=== PATIENT | female | born 1930 | race Caucasian/White ===

== ENCOUNTER 2017-06-20 08:29 | Emergency (ER) | payer OTHER ==
[~2017-06-20] VITALS: Ht 149.9 cm; Wt 70.8 kg
[~2017-06-20 08:29] MED LIST: CARVEDILOL3.125 M1 PO; LEVOTHYROXIN0.025 M2 PO; LISINOPRIL10 MG PO; LOVASTATIN10 MG PO; METFORMIN850 M1 PO; MICROZIDE12.5 MG PO; NOR10 PO; TRE400 PO
[2017-06-20 08:52] VITALS: Ht 149.9 cm; Wt 70.8 kg
[2017-06-20] MEDS ORDERED: ASPIR 8181 MG PO (10:15)
[2017-06-20] MEDS ORDERED: LISINOPRIL10 MG PO (10:15)
[2017-06-20] MEDS ORDERED: LEVOTHYROXIN0.025 M2 PO (10:16)
[2017-06-20] MEDS ORDERED: AMLODIPINE BESYL5 M2 PO (10:16)
[2017-06-20] MEDS ORDERED: HYDROCHLOROTH12.5 M3 PO (10:16)
[2017-06-20] MEDS ORDERED: ARICEPT5 MG PO (10:17)
[2017-06-20 12:08] LABS: BASOPHIL % 1.4 % (0-2); PLATELET COUNT 316 x10^3mcL (130-400)
[2017-06-20 12:09] LABS: UA SPECIFIC GRAVITY <=1.005 (1.005-1.035); microscopic required? YES; urine erythrocyte TRACE (NEGATIVE)
[2017-06-20 12:35] LABS: CALCIUM 9.1 mg/dL (8.5-10.1); CARBON DIOXIDE 26.2 mmol/L (21-32); CHLORIDE SERUM 98 mmol/L (98-107); CREATININE SERUM 0.9 mg/dL (0.6-1.0); GLUCOSE SERUM 175 mg/dL (74-106); POTASSIUM SERUM 3.9 mmol/L (3.5-5.1); SODIUM SERUM 134 mmol/L (136-145)
[2017-06-20 12:40] LABS: ALKALINE PHOSPHATASE 88 U/L (46-116); ALT/SGPT 22 U/L (14-59); AST/SGOT 19 U/L (15-37); BILIRUBIN TOTAL 0.3 mg/dL (0.20-1.00); TOTAL PROTEIN, SERUM 7.1 g/dL (6.4-8.2)
[2017-06-20 12:45] LABS: ALBUMIN 3.1 g/dL (3.4-5.0)
[2017-06-20 13:26] VITALS: BP 140/59
== END 2017-06-20 13:26 | disposition home or self-care (01) ==
LOC: ED 08:29
PROVIDERS: Emergency Medicine
DX: N39.0 Urinary tract infection, site not specified (principal); E11.9 Type 2 diabetes mellitus without complications; I10 Essential (primary) hypertension; E78.00 Pure hypercholesterolemia, unspecified
CPT/HCPCS: 83880; J0696; J7030; J7613; J7644; Q0092

== ENCOUNTER 2017-07-20 12:38 | Inpatient (IN) | payer OTHER ==
[~2017-07-20] VITALS: Ht 149.9 cm; Wt 108.2 kg
[~2017-07-20 12:38] MED LIST changes: +AMLODIPINE BESYL5 M2 PO; +ARICEPT5 MG PO; +ASPIR 8181 MG PO; +HYDROCHLOROTH12.5 M3 PO
[2017-07-20 15:11] LABS: CALCIUM 8.5 mg/dL (8.5-10.1); CARBON DIOXIDE 26.7 mmol/L (21-32); CHLORIDE SERUM 98 mmol/L (98-107); CREATININE SERUM 1.2 mg/dL (0.6-1.0); GLUCOSE SERUM 146 mg/dL (74-106); POTASSIUM SERUM 3.9 mmol/L (3.5-5.1); SODIUM SERUM 134 mmol/L (136-145)
[2017-07-20 15:21] LABS: ALKALINE PHOSPHATASE 78 U/L (46-116); ALT/SGPT 16 U/L (14-59); AST/SGOT 17 U/L (15-37); BILIRUBIN TOTAL 0.2 mg/dL (0.20-1.00); FREE T4 1.26 ng/dL (0.76-1.46); TOTAL PROTEIN, SERUM 7.1 g/dL (6.4-8.2)
[2017-07-20 15:27] LABS: ALBUMIN 3.2 g/dL (3.4-5.0); BASOPHIL % 0.6 % (0-2); PLATELET COUNT 269 x10^3mcL (130-400); RED CELL DISTRIBUTION WIDTH 13.4 % (11.5-14.5)
[2017-07-20 18:00] LABS: UA SPECIFIC GRAVITY 1.015 (1.005-1.035); microscopic required? YES; urine erythrocyte TRACE (NEGATIVE)
[2017-07-20 19:35] LABS: MAGNESIUM 1.6 mg/dL (1.8-2.4)
[2017-07-20 19:41] LABS: CHOLESTEROL/HDL RATIO 2.1
[2017-07-20 20:21] VITALS: BP 133/54
[2017-07-20 20:24] VITALS: Ht 149.9 cm; Wt 108.2 kg
[2017-07-20] MEDS ORDERED: LISINOPRIL10 MG PO (21:35)
[2017-07-21 06:14] VITALS: BP 117/96
[2017-07-21 07:26] LABS: CALCIUM 8.7 mg/dL (8.5-10.1); CARBON DIOXIDE 24.8 mmol/L (21-32); CHLORIDE SERUM 99 mmol/L (98-107); CREATININE SERUM 1.1 mg/dL (0.6-1.0); GLUCOSE SERUM 104 mg/dL (74-106); MAGNESIUM 2.2 mg/dL (1.8-2.4); POTASSIUM SERUM 3.9 mmol/L (3.5-5.1); SODIUM SERUM 133 mmol/L (136-145)
[2017-07-21 07:28] LABS: BASOPHIL % 0.4 % (0-2); PLATELET COUNT 268 x10^3mcL (130-400); RED CELL DISTRIBUTION WIDTH 13.2 % (11.5-14.5)
[2017-07-21 10:13] VITALS: BP 115/38
[2017-07-21 13:30] VITALS: BP 114/70
[2017-07-21 18:43] VITALS: BP 116/46
[2017-07-21 20:45] VITALS: BP 107/54
[2017-07-21 21:30] VITALS: BP 107/54
[2017-07-22 04:30] VITALS: BP 116/68
[2017-07-22 06:27] LABS: CALCIUM 8.5 mg/dL (8.5-10.1); CARBON DIOXIDE 24.8 mmol/L (21-32); CHLORIDE SERUM 102 mmol/L (98-107); CREATININE SERUM 1.1 mg/dL (0.6-1.0); GLUCOSE SERUM 85 mg/dL (74-106); SODIUM SERUM 137 mmol/L (136-145)
[2017-07-22 07:12] LABS: PLATELET COUNT 204 x10^3mcL (130-400); RED CELL DISTRIBUTION WIDTH 13.4 % (11.5-14.5)
[2017-07-22 10:10] VITALS: BP 123/73
[2017-07-22 10:13] LABS: BAND NEUTROPHIL 14 % (0-10); BASOPHIL 0 % (0-2); MONOCYTE 10 % (0-7); SEGMENTED NEUTROPHILS 61 % (37-75)
[2017-07-22 10:15] LABS: PLATELET MORPHOLOGY GIANT PLATELET SEEN; rbc morphology (normal/abnorm) NORMAL (NORMAL)
[2017-07-22 14:01] VITALS: BP 120/52
[2017-07-22 16:40] VITALS: BP 113/45
[2017-07-22 21:11] VITALS: BP 135/72
[2017-07-23 05:46] VITALS: BP 152/65
[2017-07-23 07:02] LABS: CALCIUM 8.6 mg/dL (8.5-10.1); CARBON DIOXIDE 27.5 mmol/L (21-32); CHLORIDE SERUM 99 mmol/L (98-107); CREATININE SERUM 1.3 mg/dL (0.6-1.0); GLUCOSE SERUM 94 mg/dL (74-106); SODIUM SERUM 137 mmol/L (136-145)
[2017-07-23 07:35] LABS: BASOPHIL % 0.5 % (0-2); PLATELET COUNT 249 x10^3mcL (130-400); RED CELL DISTRIBUTION WIDTH 13.6 % (11.5-14.5)
[2017-07-23 10:00] VITALS: BP 147/107
[2017-07-23 10:58] VITALS: BP 147/107
[2017-07-23 13:51] VITALS: BP 134/50
[2017-07-23 17:56] VITALS: BP 112/55
[2017-07-23 20:36] VITALS: BP 140/50
[2017-07-24 05:37] VITALS: BP 125/49
[2017-07-24 08:03] LABS: CALCIUM 8.6 mg/dL (8.5-10.1); CARBON DIOXIDE 25.8 mmol/L (21-32); CHLORIDE SERUM 99 mmol/L (98-107); CREATININE SERUM 1.1 mg/dL (0.6-1.0); GLUCOSE SERUM 100 mg/dL (74-106); POTASSIUM SERUM 4.1 mmol/L (3.5-5.1); SODIUM SERUM 133 mmol/L (136-145)
[2017-07-24 08:26] LABS: BASOPHIL % 0.3 % (0-2); PLATELET COUNT 228 x10^3mcL (130-400); RED CELL DISTRIBUTION WIDTH 13.4 % (11.5-14.5)
[2017-07-24 09:05] VITALS: BP 120/47
[2017-07-24] MEDS ORDERED: ZOS3PM IV (10:08)
[2017-07-24 13:30] VITALS: BP 113/51
== END 2017-07-24 14:23 | DRG 177 ==
LOC: ED 12:38 → DU 17:59 → UNDODEPER 18:11 → DU 19:47
PROVIDERS: Emergency Medicine; Family Medicine
DX: J69.0 Pneumonitis due to inhalation of food and vomit (principal); G93.41 Metabolic encephalopathy; N17.0 Acute kidney failure with tubular necrosis; Z68.42 Body mass index [BMI] 45.0-49.9, adult; E44.1 Mild protein-calorie malnutrition; E87.1 Hypo-osmolality and hyponatremia; E86.0 Dehydration; G30.9 Alzheimer's disease, unspecified; F02.80 Dementia in other diseases classified elsewhere, unspecified severity, without behavioral disturbance, psychotic disturbance, mood disturbance, and anxiety; I10 Essential (primary) hypertension; E11.51 Type 2 diabetes mellitus with diabetic peripheral angiopathy without gangrene; E11.65 Type 2 diabetes mellitus with hyperglycemia; E83.42 Hypomagnesemia; E03.9 Hypothyroidism, unspecified; Z79.82 Long term (current) use of aspirin; Z79.84 Long term (current) use of oral hypoglycemic drugs
CPT/HCPCS: 82962; 83880; 84439; 87804; 97110-GP; 97116-GP; 97530-GP; G0378; J2543; J3475; J7030; J7620; J8597; Q0092

== ENCOUNTER 2018-11-19 11:20 | Inpatient (IN) | payer OTHER ==
[~2018-11-19] VITALS: Ht 157.5 cm; Wt 81.6 kg
[~2018-11-19 11:20] MED LIST changes: +ZOS3PM IV
[2018-11-19 13:18] LABS: AMPHETAMINE QUAL UR NONE DETECTED (See below)
[2018-11-19 14:01] LABS: microscopic required? YES; urine erythrocyte NEGATIVE (NEGATIVE)
[2018-11-19 14:45] LABS: BASOPHIL % 0.8 % (0-2); PLATELET COUNT 269 x10^3mcL (130-400); RED CELL DISTRIBUTION WIDTH 13.3 % (11.5-14.5)
[2018-11-19 15:10] LABS: ALKALINE PHOSPHATASE 94 U/L (46-116); ALT/SGPT 25 U/L (14-59); AMYLASE 92 U/L (25-115); AST/SGOT 26 U/L (15-37); BILIRUBIN TOTAL 0.4 mg/dL (0.20-1.00); CALCIUM 8.6 mg/dL (8.5-10.1); CARBON DIOXIDE 18.2 mmol/L (21-32); CHLORIDE SERUM 92 mmol/L (98-107); CHOLESTEROL 144 mg/dL (<200); CREATININE SERUM 1.3 mg/dL (0.6-1.0); GLUCOSE SERUM 140 mg/dL (74-106); HDL CHOLESTEROL 47 mg/dL (40-60); LIPASE 563 IU/L (73-393); MAGNESIUM 1.6 mg/dL (1.8-2.4); T4(THYROXINE) 9.5 ug/dL (4.7-13.3); TOTAL PROTEIN, SERUM 7.1 g/dL (6.4-8.2)
[2018-11-19 15:13] LABS: SODIUM SERUM 120 mmol/L (136-145)
[2018-11-19 15:14] LABS: POTASSIUM SERUM 6.1 mmol/L (3.5-5.1)
[2018-11-19] MEDS ORDERED: ARICEPT5 MG PO (19:36)
[2018-11-19] MEDS ORDERED: AMLODIPINE BES2.5 M1 PO (19:36)
[2018-11-19] MEDS ORDERED: LEVOTHYROXIN0.025 M2 PO (19:37)
[2018-11-19] MEDS ORDERED: LISINOPRIL10 MG PO (19:37)
[2018-11-19] MEDS ORDERED: HYDROCHLOROTH12.5 M3 PO (19:37)
[2018-11-19 21:13] VITALS: BP 136/48
[2018-11-19 22:47] LABS: CALCIUM 9.3 mg/dL (8.5-10.1); CARBON DIOXIDE 19.9 mmol/L (21-32); CHLORIDE SERUM 97 mmol/L (98-107); CREATININE SERUM 1.1 mg/dL (0.6-1.0); GLUCOSE SERUM 201 mg/dL (74-106); SODIUM SERUM 125 mmol/L (136-145)
[2018-11-19 22:48] LABS: POTASSIUM SERUM 5.6 mmol/L (3.5-5.1)
[2018-11-20 05:12] VITALS: BP 133/40
[2018-11-20 07:49] LABS: CALCIUM 9.5 mg/dL (8.5-10.1); CARBON DIOXIDE 21.7 mmol/L (21-32); CHLORIDE SERUM 99 mmol/L (98-107); CREATININE SERUM 1.1 mg/dL (0.6-1.0); GLUCOSE SERUM 158 mg/dL (74-106); MAGNESIUM 2.1 mg/dL (1.8-2.4); SODIUM SERUM 129 mmol/L (136-145)
[2018-11-20 07:58] LABS: BASOPHIL % 0.6 % (0-2); PLATELET COUNT 284 x10^3mcL (130-400); RED CELL DISTRIBUTION WIDTH 13.4 % (11.5-14.5)
[2018-11-20 09:12] VITALS: Ht 157.5 cm; Wt 81.6 kg
[2018-11-20 09:52] VITALS: BP 123/59
[2018-11-20 12:41] VITALS: BP 107/39
[2018-11-20 16:08] LABS: CALCIUM 9.1 mg/dL (8.5-10.1); CHLORIDE SERUM 97 mmol/L (98-107); CREATININE SERUM 1.1 mg/dL (0.6-1.0); GLUCOSE SERUM 227 mg/dL (74-106)
[2018-11-20 16:10] LABS: SODIUM SERUM 124 mmol/L (136-145)
[2018-11-20 16:12] LABS: POTASSIUM SERUM 5.9 mmol/L (3.5-5.1)
[2018-11-20 17:18] VITALS: BP 108/38
[2018-11-20 20:51] LABS: CALCIUM 8.8 mg/dL (8.5-10.1); CARBON DIOXIDE 18.3 mmol/L (21-32); CHLORIDE SERUM 99 mmol/L (98-107); CREATININE SERUM 1.3 mg/dL (0.6-1.0); GLUCOSE SERUM 269 mg/dL (74-106); POTASSIUM SERUM 4.9 mmol/L (3.5-5.1); SODIUM SERUM 129 mmol/L (136-145)
[2018-11-20 21:27] VITALS: BP 135/64
[2018-11-21 06:01] VITALS: BP 143/50
[2018-11-21 06:19] LABS: BASOPHIL % 1.1 % (0-2); PLATELET COUNT 235 x10^3mcL (130-400); RED CELL DISTRIBUTION WIDTH 13.4 % (11.5-14.5)
[2018-11-21 06:32] LABS: CALCIUM 8.7 mg/dL (8.5-10.1); CARBON DIOXIDE 22.5 mmol/L (21-32); CHLORIDE SERUM 100 mmol/L (98-107); GLUCOSE SERUM 95 mg/dL (74-106); MAGNESIUM 2.3 mg/dL (1.8-2.4); SODIUM SERUM 130 mmol/L (136-145)
[2018-11-21 06:44] LABS: CHOLESTEROL/HDL RATIO 2.4
[2018-11-21 06:55] LABS: POTASSIUM SERUM 5.7 mmol/L (3.5-5.1)
[2018-11-21 09:02] VITALS: BP 132/55
[2018-11-21 12:47] VITALS: BP 128/49
[2018-11-21 16:43] VITALS: BP 159/60
[2018-11-21 20:15] VITALS: BP 148/47
[2018-11-22 05:24] VITALS: BP 143/53
[2018-11-22 06:41] LABS: BASOPHIL % 0.4 % (0-2); PLATELET COUNT 218 x10^3mcL (130-400); RED CELL DISTRIBUTION WIDTH 13.4 % (11.5-14.5)
[2018-11-22 06:57] LABS: ALKALINE PHOSPHATASE 75 U/L (46-116); ALT/SGPT 17 U/L (14-59); AST/SGOT 28 U/L (15-37); BILIRUBIN TOTAL 0.34 mg/dL (0.20-1.00); CALCIUM 8.5 mg/dL (8.5-10.1); CARBON DIOXIDE 24.3 mmol/L (21-32); CHLORIDE SERUM 101 mmol/L (98-107); CREATININE SERUM 0.9 mg/dL (0.6-1.0); GLUCOSE SERUM 110 mg/dL (74-106); LIPASE 189 IU/L (73-393); MAGNESIUM 2.4 mg/dL (1.8-2.4); PHOSPHOROUS 3.1 mg/dL (2.5-4.9); POTASSIUM SERUM 4.9 mmol/L (3.5-5.1); SODIUM SERUM 133 mmol/L (136-145)
[2018-11-22 07:03] LABS: ALBUMIN 2.3 g/dL (3.4-5.0); TOTAL PROTEIN, SERUM 5.6 g/dL (6.4-8.2)
[2018-11-22 08:10] VITALS: BP 148/60
[2018-11-22 12:12] VITALS: BP 130/64
[2018-11-22 16:25] VITALS: BP 133/66
[2018-11-22 21:20] VITALS: BP 134/45
[2018-11-23 06:06] VITALS: BP 135/53
[2018-11-23 08:11] VITALS: BP 149/50
[2018-11-23 11:17] LABS: CALCIUM 7.8 mg/dL (8.5-10.1); CARBON DIOXIDE 26.1 mmol/L (21-32); CHLORIDE SERUM 103 mmol/L (98-107); GLUCOSE SERUM 140 mg/dL (74-106); POTASSIUM SERUM 4.1 mmol/L (3.5-5.1); SODIUM SERUM 135 mmol/L (136-145)
[2018-11-23 11:56] LABS: BASOPHIL % 0.2 % (0-2); PLATELET COUNT 200 x10^3mcL (130-400); RED CELL DISTRIBUTION WIDTH 13.5 % (11.5-14.5)
[2018-11-23 13:25] VITALS: BP 152/48
[2018-11-23 17:36] VITALS: BP 144/42
[2018-11-23 20:36] VITALS: BP 144/42
[2018-11-23 21:53] VITALS: BP 159/57
[2018-11-24 05:49] VITALS: BP 139/50
[2018-11-24 08:47] LABS: UA SPECIFIC GRAVITY 1.015 (1.005-1.035); microscopic required? YES; urine erythrocyte 2+ (NEGATIVE)
[2018-11-24 09:00] VITALS: BP 145/55
[2018-11-24 12:30] VITALS: BP 154/66
[2018-11-25 04:13] LABS: CK-BB 6 % (0); CK-MB 0 % (0-3); CK-MM 94 % (97-100); MACRO TYPE 1 0 % (Not Observed); MACRO TYPE 2 0 % (Not Observed)
== END 2018-11-24 19:42 | DRG 682 ==
LOC: ED 11:20 → DU 17:42
PROVIDERS: Emergency Medicine; Internal Medicine; Internal Medicine Nephrology; ADMIT Internal Medicine Pulmonary Disease
DX: N17.9 Acute kidney failure, unspecified (principal); J96.01 Acute respiratory failure with hypoxia; K85.90 Acute pancreatitis without necrosis or infection, unspecified; G93.41 Metabolic encephalopathy; N39.0 Urinary tract infection, site not specified; E87.1 Hypo-osmolality and hyponatremia; J98.11 Atelectasis; E46 Unspecified protein-calorie malnutrition; I12.9 Hypertensive chronic kidney disease with stage 1 through stage 4 chronic kidney disease, or unspecified chronic kidney disease; E11.22 Type 2 diabetes mellitus with diabetic chronic kidney disease; N18.3 Chronic kidney disease, stage 3 (moderate); E87.5 Hyperkalemia; E83.42 Hypomagnesemia; R54 Age-related physical debility; I45.10 Unspecified right bundle-branch block; E78.5 Hyperlipidemia, unspecified; E03.9 Hypothyroidism, unspecified; F03.90 Unspecified dementia, unspecified severity, without behavioral disturbance, psychotic disturbance, mood disturbance, and anxiety; Z68.33 Body mass index [BMI] 33.0-33.9, adult
CPT/HCPCS: 82962; 83880; 92526-GN; 92610; 94150; 97110-GP; B4164; C1751; G0480; J0696; J1815; J1956; J3475; J3490; J7030; J7040; J7070; J7613; Q0092